=== PATIENT | male | born 1965 | race Caucasian/White ===

== ENCOUNTER 2019-01-17 07:01 | Emergency (ER) | payer BC ==
[2019-01-17 07:30] VITALS: BP 150/92
[2019-01-17 07:46] LABS: Influenza A Molecular POSITIVE (Negative)
--- NOTE | 2019-01-17 07:58 | UC ---
Throat Pain/Nasal Rivera HPI - HPI Summary HPI Summary: Patient presents with cough for 2 weeks. Patient states over the last 36 hours has had progressive headache congestion, ear fullness, nausea with one episode of emesis. And diarrhea. Nonbloody nonblack. Patient states she's had a tactile temperature. Patient's taken Mucinex last dose last night. Patient states his cough is gotten worse with productive clear sputum. Patient had a flu shot in the fall. Patient drives [employer]. Patient is not immunocompromised. Medications reviewed this visit. - History of Current Complaint Chief Complaint: UCRespiratory Stated Complaint: COUGH,CHEST CONGESTION Time Seen by Provider: 01/17/19 07:58 Hx Obtained From: Patient Pain Intensity: 5 - Allergies/Home Medications Allergies/Adverse Reactions: Allergies Allergy/AdvReac Type Severity Reaction Status Date / Time No Known Allergies Allergy Verified 01/17/19 07:25 Home Medications: Home Medications Diphenhydram/PE/Dm/Acetamin/GG [Mucinex Fast-Max Day Time] 1 mis PO SEE INSTRUCTIONS PRN 01/17/19 [History Confirmed 01/17/19] PMH/Surg Hx/FS Hx/Imm Hx Previously Healthy: Yes Cardiovascular History: Hypertension - dietary modification - Surgical History Surgical History: Yes Surgery Procedure, Year, and Place: left shoulder surgery; right arm - Family History Known Family History: Positive: Non-Contributory - Social History Occupation: Employed Full-time Lives: With Family Alcohol Use: None Substance Use Type: None Substance Use Comment - Amount & Last Used: 3-4 cups per day Smoking Status (MU): Never Smoked Tobacco Review of Systems All Other Systems Reviewed And Are Negative: Yes Constitutional: Positive: Fever, Chills, Fatigue ENT: Positive: Nasal Discharge, Sinus Congestion, Sinus Pain/Tenderness Respiratory: Positive: Cough, Other - wheeze, productive Cardiovascular: Positive: Negative Gastrointestinal: Positive: Negative Genitourinary: Positive: Negative Motor: Positive: Negative Neurovascular: Positive: Negative Musculoskeletal: Positive: Negative Neurological: Positive: Negative Physical Exam - Summary Physical Exam Summary: Vital Signs Reviewed: Yes A+Ox3, tired appearing, coarse cough Eyes: Conjunctiva Clear, OLIVIA. EOM intact and full ENT: Hearing grossly normal TM x 2 clear, turbinates inflammed and boggy, + PND , mmoist, uvula midline, no exudate, no erythema Neck: Positive: Supple Respiratory: Positive: No respiratory distress, No accessory muscle use, coarse cough + exp wheeze b/l no increases WOB , sentences interrupted with cough Cardiovascular: RRR nl s1, s2 no m/r CBT <2 sec abd soft + BS nt/nd no guarding, no distension Musculoskeletal Exam: RODRIGES x 4 without difficulty Strength Intact, ROM Intact Neurological: Positive: Alert, + sensation throughout Psychological: Positive: Normal Response To Family Skin: Positive: no rash, no ecchymosis Triage Information Reviewed: Yes Vital Signs: Initial Vital Signs Temp 98.4 F 01/17/19 07:20 Pulse 74 01/17/19 07:20 Resp 18 01/17/19 07:20 BP 150/92 01/17/19 07:20 Pulse Ox 99 01/17/19 07:20 Diagnostics - Radiology No standard instances Radiology Interpretation Completed By: Radiologist - Patient Name: MICAH THOMAS Medical Record#: [id number] Ordering Physician: Yamel Solorzano MD Acct.#: [id number] : 1965 Age: 53 Sex: M Location: [facility] Exam Date: 01/17/19804 ADM Status: REG ER Order Information: CHEST PA & LAT 2 VWS Accession Number: [id number] CPT: 90881 INDICATION: Cough, wheezing. COMPARISON: No relevant prior exams available on the [facility] [place] PACS for comparison. TECHNIQUE: Dual energy PA and routine lateral views of the chest were obtained. REPORT: Elevated lung volumes. No focal pulmonary lesion, compelling alveolar consolidation, pleural effusion, pneumothorax. Negative for cardiomegaly. Unremarkable central pulmonary vasculature. Moderately tortuous thoracic aorta. IMPRESSION: #. Stigmata of probable obstructive lung disease. No acute pulmonary or cardiac process evident. <Electronically signed by Rogers Saha MD in OV> 01/17 Dictated By: Rogers Saha MD Dictated Date/Time: 01/17/19823 Transcribed Date/Time: 01/17/19820 Copy to: CC:Yamel Solorzano MD; Arthur Dove DO Imaging - [facility] Imaging - [facility] Imaging - [facility] [id number] [place] [id number] ph ([phone]) ph ([phone]) ph ([phone]) This report is only to be considered final once signed by the Provider(s) as displayed in the "< Electronically Signed by >" field (s). Absence of a signature indicates the report is in a draft status and still needs to be finalized. In the event this document was created by someone other than the signing Provider, the individual initiating the document will be listed in the "Entered by:" or "Dictated by:" [email or web address]. 1 of 1 Throat Pain/Nasal Course/Dx - Course Course Of Treatment: Patient presents with 2 weeks of progressive cough. Over the last 36 hours patient has also developed sinus congestion sore throat body aches fevers nausea with one episode of emesis and diarrhea. Patient states he just feels very tired. Adri has been taking Mucinex. On exam vital signs are stable. Patient with a history of hypertension treated with diet modification. Patient with sinus congestion coarse cough. Wheezes. Patient is influenza A positive. Will do a chest x-ray DuoNeb and reassessed. Anticipate Tamiflu. Discussed with patient will be at work to Monday. We will wait for chest x-ray results for further decision-making. Patient comfortable in agreement with plan. - Differential Dx/Diagnosis Provider Diagnosis: Influenza A Discharge - Sign-Out/Discharge Documenting (check all that apply): Patient Departure All imaging exams completed and their final reports reviewed: Yes - Discharge Plan Condition: Stable Disposition: HOME Patient Education Materials: Influenza (ED) Referrals: Arthur Dove DO [Primary Care Provider] - Additional Instructions: - Stay well hydrated. Drink plenty of non-alcoholic, non-caffinated beverages. - Alternate ibuprofen (Advil, Motrin) 600mg and Tylenol every 3 hours for pain or fever. Take with food. Do NOT take for more than 4-5 days. - These infections are spread by secretions - do NOT share eating or drinking utensils - clean items you share with other people such as cell phones, computer mouse, TV remote, computer tablets,etc. Once you start to feel better, change your toothbrush and your pillowcase. - take Tamiflu a prescribed - get plenty of restful sleep - humidify the air in the room where you sleep - boil water, run a hot steam shower, vaporizer, cups of water by heat register - okay to take over the counter decongestant and cough medication - Use inhaler - 2 puffs every 4 hours for the first 2 days, then as needed for cough or wheeze - contact your doctor or return with questions or concerns - Billing Disposition and Condition Condition: STABLE Disposition: Home
[2019-01-17] MEDS ORDERED: Albuterol/Ipratropium NEB.SOL* Albuterol 2.5 MG/Ipratropium 0.5 MG 3 ML INH ONE (08:05)
== END 2019-01-17 08:51 | disposition home or self-care (01) ==
LOC: UCCORT 07:01
DX: J10.1 Influenza due to other identified influenza virus with other respiratory manifestations (principal); R05 Cough; I10 Essential (primary) hypertension
CPT/HCPCS: 71046; 99202; A9270-GY; G0463